=== PATIENT | male | born 1980 | race American Indian/Alaskan Native ===

== ENCOUNTER 2019-11-28 07:24 | Emergency (ER) | payer SELFPAY ==
[2019-11-28 07:30] VITALS: BP 141/76
--- NOTE | 2019-11-28 10:43 | Emergency Department Report ---
ED General Adult HPI - General Chief complaint: Sore Throat Stated complaint: SORE THROAT Time Seen by Provider: 11/28/19 09:31 Source: patient Mode of arrival: Ambulatory Limitations: No Limitations - History of Present Illness Initial comments: 39 yo A M pt complains of sore throat x yesterday. He denies any cough or fever. He rates his pain at a 8.5/10 in severity and states pain worsens with swallowing. He also reports swollen glands in neck. He difficulty with swallowing. Quality: aching Consistency: constant Associated Symptoms: denies other symptoms - Related Data Home Medications Medication Instructions Recorded Confirmed Last Taken Oseltamivir Phosphate [Tamiflu] 0 mg PO Q12H 12/17/15 12/17/15 12/17/15 09:30 Previous Rx's Medication Instructions Recorded Last Taken Type Azithromycin [Zithromax Z-JORDANA] 250 mg PO DAILY #6 tab 12/17/15 Unknown Rx Fluticasone [Flonase] 2 spray NS QDAY #1 bottle 12/17/15 Unknown Rx HYDROcodone/APAP 5-325 [[place] 1 each PO Q6HR PRN #14 tablet 12/17/15 Unknown Rx 5/325] Amoxicillin [Trimox CAP] 500 mg PO Q8H 10 Days #20 capsule 11/28/19 Unknown Rx Ibuprofen [Motrin 800 MG tab] 800 mg PO Q8HR PRN #15 tablet 11/28/19 Unknown Rx Allergies Allergy/AdvReac Type Severity Reaction Status Date / Time No Known Allergies Allergy Unverified 12/17/15 13:44 ED Review of Systems ROS: Stated complaint: SORE THROAT Other details as noted in HPI Comment: All other systems reviewed and negative ENT: throat pain. denies: congestion ED Past Medical Hx - Past Medical History Previous Medical History?: No - Surgical History Past Surgical History?: No - Social History Smoking Status: Never Smoker Substance Use Type: Alcohol - Medications Home Medications: Home Medications Medication Instructions Recorded Confirmed Last Taken Type Azithromycin [Zithromax Z-JORDANA] 250 mg PO DAILY #6 tab 12/17/15 Unknown Rx Fluticasone [Flonase] 2 spray NS QDAY #1 bottle 12/17/15 Unknown Rx HYDROcodone/APAP 5-325 [[place] 1 each PO Q6HR PRN #14 tablet 12/17/15 Unknown Rx 5/325] Oseltamivir Phosphate [Tamiflu] 0 mg PO Q12H 12/17/15 12/17/15 12/17/15 09:30 History Amoxicillin [Trimox CAP] 500 mg PO Q8H 10 Days #20 capsule 11/28/19 Unknown Rx Ibuprofen [Motrin 800 MG tab] 800 mg PO Q8HR PRN #15 tablet 11/28/19 Unknown Rx ED Physical Exam - General Limitations: No Limitations General appearance: alert, in no apparent distress - Head Head exam: Present: atraumatic, normocephalic - Eye Eye exam: Present: normal appearance - ENT ENT exam: Present: mucous membranes moist - Expanded ENT Exam Expanded Mouth exam: Present: tongue normal, tongue elevation. Absent: drooling, trismus, muffled voice Throat exam: Positive: tonsillar erythema, tonsillomegaly, tonsillar exudate - Neck Neck exam: Present: lymphadenopathy (minimal bilateral submandibular) - Respiratory Respiratory exam: Present: normal lung sounds bilaterally. Absent: respiratory distress - Cardiovascular Cardiovascular Exam: Present: regular rate, normal rhythm. Absent: systolic murmur, diastolic murmur, rubs, gallop - Neurological Exam Neurological exam: Present: alert, oriented X3 - Psychiatric Psychiatric exam: Present: normal affect, normal mood - Skin Skin exam: Present: warm, dry, intact, normal color. Absent: rash ED Course Vital Signs 11/28/19 07:27 Temperature 99.1 F Pulse Rate 65 Respiratory 18 Rate Blood Pressure 141/76 O2 Sat by Pulse 99 Oximetry ED Medical Decision Making - Medical Decision Making Pt complains of sore throat x yesterday. Exam and history are consistent with strep pharyngitis. Vitals are normal. No trismus or difficulty swallowing noted on exam. Pt is stable for discharge home with amoxil. Recommend PCP f/u as needed. Strict return precautions were discussed in detail with pt who verbalizes understanding. Critical care attestation.: If time is entered above; I have spent that time in minutes in the direct care of this critically ill patient, excluding procedure time. ED Disposition Clinical Impression: Strep pharyngitis Disposition: - TO HOME OR SELFCARE Is pt being admited?: No Condition: Stable Instructions: Strep Throat (ED) Prescriptions: Ibuprofen [Motrin 800 MG tab] 800 mg PO Q8HR PRN #15 tablet PRN Reason: pain Amoxicillin [Trimox CAP] 500 mg PO Q8H 10 Days #20 capsule Referrals: PRIMARY CARE, [Primary Care Provider] - as needed Forms: Work/School Release Form(ED)
== END 2019-11-28 10:56 | disposition home or self-care (01) ==
LOC: ED 07:24
DX: J02.0 Streptococcal pharyngitis (principal); Z79.899 Other long term (current) drug therapy